=== PATIENT | female | born 1945 | race Hispanic/Latino ===

== ENCOUNTER 2017-02-02 11:20 | Outpatient (CLI) | payer MEDICARE, MEDICAID ==
--- NOTE | 2017-02-02 13:45 | Mammography Report ---
BILATERAL MAMMOGRAM: FINDINGS: The breast tissue is heterogeneously dense, which could obscure detection of small masses (approximately 50%-75% glandular). No mass, distortion, suspicious calcification, or skin change is seen. Location and date of prior exams not known. CAD was utilized. IMPRESSION: Negative mammogram. There is no mammographic evidence of malignancy. RECOMMENDATION: Follow-up per ACS guidelines. BI-RADS CATEGORY: 1 = Negative ACR BI-RADS MAMMOGRAPHIC CODES: 0 = Needs additional imaging evaluation; 1 = Negative; 2 = Benign; 3 = Probably benign; 4 = Suspicious; 5 = Malignant; 6 = Known biopsy-proven malignancy COMMENT: 1. Dense breast tissue, i.e., adenosis, fibrocystic changes, etc., may obscure an underlying neoplasm. 2. Approximately 10% of cancers are not detected with mammography. 3. A negative mammography report should not delay biopsy if a clinically suspicious mass is present. COMMENT: Patient follow-up letters are generated in [employer].
== END 2017-02-02 11:21 | disposition home or self-care (01) ==
LOC: SPVWC 11:20
PROVIDERS: ATTEND Family Medicine
DX: Z12.31 Encounter for screening mammogram for malignant neoplasm of breast (principal)
CPT/HCPCS: 77067; G0202

== ENCOUNTER 2017-09-11 21:20 | Emergency (ER) | payer MEDICAID, MEDICARE ==
[2017-09-11 22:22] LABS: Basophils # (Auto) 0.1 K/mm3 (0.0-0.1); Basophils % (Auto) 0.8 % (0.0-1.8); Eosinophils % (Auto) 0.2 % (0.0-4.3); Hemoglobin 13.5 gm/dl (10.1-14.3); Lymphocytes # (Auto) 1.9 K/mm3 (1.2-5.4); Lymphocytes % (Auto) 22.2 % (13.4-35.0); Mean Corpuscular HGB Conc 36 % (30-34); Mean Corpuscular Hemoglobin 31 pg (28-32); Mean Corpuscular Volume 88 fl (79-97); Monocytes # (Auto) 0.9 K/mm3 (0.0-0.8); Monocytes % (Auto) 10.9 % (0.0-7.3); Platelet Count 267 K/mm3 (140-440); Red Blood Count 4.32 M/mm3 (3.65-5.03); Red Cell Distribution Width 13.5 % (13.2-15.2)
--- NOTE | 2017-09-11 22:39 | XRay Report ---
FINAL REPORT EXAM: XR CHEST ROUTINE 2V HISTORY: Shortness of breath COMPARISON: None available. FINDINGS:: Frontal and lateral views of the chest obtained. Cardiac silhouette is within normal limits. Mild bronchial wall thickening. No focal consolidation or effusion. No pneumothorax. Visualized bony thorax is grossly intact. Mild calcification aortic arch. IMPRESSION:: Mild bronchial wall thickening concerning for bronchitis. No focal consolidation or effusion.
[2017-09-11 22:47] LABS: Calcium 9.2 mg/dL (8.4-10.2)
[2017-09-12] MEDS ORDERED: K-DUR PO ONE (00:18)
[2017-09-12] MEDS ORDERED: TESSALON PERLES PO ONE (00:28)
[2017-09-12] MEDS ORDERED: ULTRAM PO ONE (00:29)
[2017-09-12] MEDS ORDERED: ATROVENT IH ONE (00:32)
[2017-09-12] MEDS ORDERED: PROVENTIL IH ONE (00:32)
--- NOTE | 2017-09-12 00:34 | Emergency Department Report ---
HPI - General Chief Complaint: Chest Pain Time Seen by Provider: 09/12/17 00:18 - HPI HPI: Room 21 The patient is a 72-year-old female presenting with a chief complaint of cough and congestion. The patient states she has been "sick" for 1 month. The patient states her symptoms include rhinorrhea, productive cough and left earache and sore throat. The patient states she coughs so frequently gags her. Patient complaining of some shortness of breath with the cough. The patient states for the past 3-4 days he has had chest pain only when she coughs. Chest pain is described as a soreness. Patient missed a fever 101F. The patient states there is a family member at home has similar symptoms. The patient states she has not seen a physician for her above complaints yet. Location: [See above] Duration: One month Quality: Soreness Severity: Moderate Modifying factors: [see above] Context: [see above] Mode of transportation: [not driving] ED Past Medical Hx - Past Medical History Previous Medical History?: Yes Hx Hypertension: Yes Additional medical history: hypothyroid - Surgical History Past Surgical History?: Yes Hx Cholecystectomy: Yes Additional Surgical History: B/L knee replacement, tubaligation - Family History Family history: no significant - Social History Smoking Status: Former Smoker Substance Use Type: Alcohol (occasional) - Medications Home Medications: Home Medications Medication Instructions Recorded Confirmed Last Taken Type Levothyroxine [Synthroid] 112 mcg PO QAM 09/11/17 09/11/17 09/11/17 History Memantine [Namenda] 5 mg PO QDAY 09/11/17 09/11/17 09/11/17 History Montelukast [Singulair] 10 mg PO QPM 09/11/17 09/11/17 09/11/17 History Rosuvastatin Calcium 10 mg PO DAILY 09/11/17 09/11/17 09/11/17 History Sertraline [Zoloft] 25 mg PO QDAY 09/11/17 09/11/17 09/11/17 History Triamterene/Hydrochlorothiazid 1 each PO DAILY 09/11/17 09/11/17 09/11/17 History [Triamterene-Hctz 75-50 mg Tab] ALBUTEROL Inhaler [Proair] 2 puff IH QID PRN #1 inhalation 09/12/17 Unknown Rx Azithromycin [Zithromax Z-JAY] 0 mg PO DAILY #6 tab 09/12/17 Unknown Rx Benzonatate [Tessalon Perle] 100 mg PO TID PRN #30 capsule 09/12/17 Unknown Rx Promethazine [Phenergan TAB] 25 mg PO Q6HR PRN #10 tab 09/12/17 Unknown Rx traMADol [Ultram] 50 mg PO Q6HR PRN #10 tablet 09/12/17 Unknown Rx ED Review of Systems ROS: Stated complaint: CHEST PAIN,COUGH,SOB Other details as noted in HPI Constitutional: fever ENT: throat pain, congestion Respiratory: cough, shortness of breath Gastrointestinal: nausea Musculoskeletal: myalgia Neurological: headache Physical Exam - Physical Exam Vital Signs: Vital Signs 09/11/17 21:37 Temperature 98.8 F Pulse Rate 90 Respiratory 20 Rate Blood Pressure 127/50 O2 Sat by Pulse 93 Oximetry Physical Exam: GENERAL: The patient is well-developed well-nourished female lying on stretcher with frequent cough but not appear to be in acute distress. [] HEENT: Normocephalic. Atraumatic. Extraocular motions are intact. Oropharynx clear. Left TM clear. There is tenderness to percussion of the right maxillary sinus NECK: Supple. No meningitic signs are noted. No stridor CHEST/LUNGS: Clear to auscultation. There is no respiratory distress noted. Frequent cough HEART/CARDIOVASCULAR: Regular. There is no tachycardia. There is no gallop rub or murmur. ABDOMEN: Abdomen is soft, nontender. Patient has normal bowel sounds. There is no abdominal distention. SKIN: There is no rash. There is no edema. There is no diaphoresis. NEURO: The patient is awake, alert, and oriented. The patient is cooperative. The patient has normal speech MUSCULOSKELETAL: There is no evidence of acute injury. ED Course Vital Signs 09/11/17 21:37 Temperature 98.8 F Pulse Rate 90 Respiratory 20 Rate Blood Pressure 127/50 O2 Sat by Pulse 93 Oximetry ED Medical Decision Making - Lab Data Result diagrams: 09/11/17 21:59 09/11/17 21:59 Laboratory Tests 09/11/17 09/11/17 09/11/17 21:59 21:59 22:10 WBC 8.7 RBC 4.32 Hgb 13.5 Hct 38.0 MCV 88 MCH 31 MCHC 36 H RDW 13.5 Plt Count 267 Lymph % (Auto) 22.2 Young % (Auto) 10.9 H Eos % (Auto) 0.2 Baso % (Auto) 0.8 Lymph # 1.9 Young # 0.9 H Eos # 0.0 Baso # 0.1 Seg Neutrophils % 65.9 Seg Neutrophils # 5.7 Sodium 132 L Potassium 2.8 L* Chloride 89.4 L Carbon Dioxide 29 Anion Gap 16 BUN 9 Creatinine 1.0 Estimated GFR 55 BUN/Creatinine Ratio 9 Glucose 111 H Calcium 9.2 Troponin T < 0.010 Influenza A (Rapid) Influenza B (Rapid) 09/12/17 Unknown WBC RBC Hgb Hct MCV MCH MCHC RDW Plt Count Lymph % (Auto) Young % (Auto) Eos % (Auto) Baso % (Auto) Lymph # Young # Eos # Baso # Seg Neutrophils % Seg Neutrophils # Sodium Potassium Chloride Carbon Dioxide Anion Gap BUN Creatinine Estimated GFR BUN/Creatinine Ratio Glucose Calcium Troponin T Influenza A (Rapid) Negative Influenza B (Rapid) Negative - EKG Data -: EKG Interpreted by Me EKG shows normal: sinus rhythm Rate: normal - EKG Data When compared to previous EKG there are: previous EKG unavailable Interpretation: nonspecific ST-T wave natividad (T-wave inversion in lead V2) - Radiology Data Radiology results: report reviewed (chest x-ray), image reviewed (chest x-ray) interpreted by me: Chest x-ray-no focal infiltrates, no pneumothorax [facility] [address] [place] [address] XRay Report Signed Patient: LALITHA AHMADI MR#: [id number] : 1945 Acct:[id number] Age/Sex: 72 / F ADM Date: 09/11/17 Loc: ED Attending Dr: Ordering Physician: ELIZABETH HENDERSON MD Date of Service: 09/11/17 Procedure(s): XR chest routine 2V Accession Number(s): [id number] cc: ED MD SANTIAGO Fluoro Time In Minutes: FINAL REPORT EXAM: XR CHEST ROUTINE 2V HISTORY: Shortness of breath COMPARISON: None available. FINDINGS:: Frontal and lateral views of the chest obtained. Cardiac silhouette is within normal limits. Mild bronchial wall thickening. No focal consolidation or effusion. No pneumothorax. Visualized bony thorax is grossly intact. Mild calcification aortic arch. IMPRESSION:: Mild bronchial wall thickening concerning for bronchitis. No focal consolidation or effusion. Transcribed By: LMA Dictated By: STEVE ODEN MD Electronically Authenticated By: STEVE ODEN MD Signed Date/Time: 09/11/172232 DD/ 32 TD/TT: 09/11/172232 - Differential Diagnosis pneumonia, bronchitis, sinusitis, costochondritis Critical care attestation.: If time is entered above; I have spent that time in minutes in the direct care of this critically ill patient, excluding procedure time. ED Disposition Clinical Impression: Acute bronchitis, Hypokalemia Disposition: - TO HOME OR SELFCARE Is pt being admited?: No Does the pt Need Aspirin: No Condition: Stable Instructions: Acute Bronchitis (ED) Additional Instructions: Return to the emergency department immediately should you develop worsening symptoms, fever, inability to tolerate food or liquid or any other concerns. Prescriptions: ALBUTEROL Inhaler [Proair] 2 puff IH QID PRN #1 inhalation PRN Reason: Shortness Of Breath Azithromycin [Zithromax Z-JAY] 0 mg PO DAILY #6 tab Benzonatate [Tessalon Perle] 100 mg PO TID PRN #30 capsule PRN Reason: Cough Promethazine [Phenergan TAB] 25 mg PO Q6HR PRN #10 tab PRN Reason: Nausea traMADol [Ultram] 50 mg PO Q6HR PRN #10 tablet PRN Reason: Pain Referrals: NIRAJ ODOM MD [Primary Care Provider] - 3-5 Days Time of Disposition: 02:00
[2017-09-12 03:16] VITALS: BP 138/63
== END 2017-09-12 03:16 | disposition home or self-care (01) ==
LOC: ED 21:20
DX: J20.9 Acute bronchitis, unspecified (principal); E87.6 Hypokalemia; I10 Essential (primary) hypertension; E03.9 Hypothyroidism, unspecified; Z98.51 Tubal ligation status; Z96.653 Presence of artificial knee joint, bilateral; Z87.891 Personal history of nicotine dependence; Z90.49 Acquired absence of other specified parts of digestive tract
CPT/HCPCS: 36415; 71046; 80048; 84484; 85025; 87400; 93005; 93010; 94640

== ENCOUNTER 2018-02-07 08:29 | Outpatient (CLI) | payer MEDICARE ==
--- NOTE | 2018-02-07 11:07 | Mammography Report ---
BILATERAL DIGITAL SCREENING MAMMOGRAM with CAD: 02/07/18 08:29:00 CLINICAL: Routine screening. COMPARISON:02/02/17 FINDINGS: The breasts are heterogeneously dense, which may obscure small masses. No mass, architectural distortion or suspicious calcifications. IMPRESSION: No mammographic evidence of malignancy. BI-RADS CATEGORY: 1 - - Negative RECOMMENDATION: Routine mammographic screening in one year. COMMENT: Patient follow-up letters are generated by our [employer] application.
== END 2018-02-07 08:30 | disposition home or self-care (01) ==
LOC: MAMMO 08:29
PROVIDERS: ATTEND Family Medicine
DX: Z12.31 Encounter for screening mammogram for malignant neoplasm of breast (principal); I10 Essential (primary) hypertension; Z90.49 Acquired absence of other specified parts of digestive tract; Z87.891 Personal history of nicotine dependence
CPT/HCPCS: 77067